=== PATIENT | male | born 1975 | race Caucasian/White ===

== ENCOUNTER → 2019-01-14 | Outpatient (CLI) | payer BC ==
[~2019-01-14] MED LIST: CELE200C PO; CYCL10TA2 PO; GABA300C18 PO; GADOTERATE 7.5 MMOL/15ML VIAL. IVP ONE; OMEP40CA5 PO
--- NOTE | 2019-01-14 17:52 | KCIC ---
MRI of the Brain without and with Contrast 01/14/2019 Clinical History: New onset of double vision for the last 2 months. Technique: Unenhanced T1-weighted sagittal and axial and FLAIR, T2-weighted and diffusion-weighted axial images of the brain were obtained. After the intravenous administration of 16 cc of Dotarem, enhanced T1-weighted axial and coronal images of the brain were obtained. Findings: The ventricles and sulci are within normal limits in size and configuration. No area of significant abnormal signal intensity is seen involving the brain parenchyma. No abnormal area of contrast enhancement is seen. No extra-axial fluid collection is noted. There is no MRI evidence of acute ischemia/infarction. The orbits are within normal limits. Mild mucosal thickening is seen scattered throughout the paranasal sinuses. There are minimal bilateral mastoid effusions. Normal flow voids are seen within the major vascular structures surrounding the brain parenchyma. Impression: 1. Negative MRI of the brain. 2. Mild paranasal sinus and mastoid disease. Electronically signed by: Familia Larios MD (01/14/2019 5:49 PM) [id number]
== END | disposition home or self-care (01) ==
LOC: KCIC MRI 11:06
PROVIDERS: ATTEND Physician Assistant Medical
DX: H74.8X3 Other specified disorders of middle ear and mastoid, bilateral (principal); J34.89 Other specified disorders of nose and nasal sinuses; H53.2 Diplopia; F17.200 Nicotine dependence, unspecified, uncomplicated
CPT/HCPCS: 70553; A9575